=== PATIENT | female | born 1985 | race Caucasian/White ===

== ENCOUNTER 2023-02-28 15:39 | Emergency (ER) | payer MEDICAID ==
[2023-02-28] MEDS ORDERED: Ketorolac 30 MG/ML SDV IM ONE (16:48)
== END 2023-02-28 17:19 | disposition home or self-care (01) ==
LOC: JP.ED 15:39
DX: L03.011 Cellulitis of right finger (principal)
CPT/HCPCS: 96372; 99283; J1885